=== PATIENT | female | born 1965 | race Caucasian/White ===

== ENCOUNTER 2019-03-30 14:32 | Emergency (ER) | payer OTHER ==
[~2019-03-30] VITALS: Ht 160 cm; Wt 69.0 kg
[2019-03-30] MEDS ORDERED: BRIN1TAB3 PO (14:44)
[2019-03-30] MEDS ORDERED: ONDANSETRON 4MG/2ML VIAL (J2405) IV ONE (15:00)
[2019-03-30] MEDS ORDERED: NS 1,000 ML IV ONE (15:00)
[2019-03-30] MEDS ORDERED: ADACEL/BOOSTRIX VACCINE (DIPHTH/PERTUSS/ACELL/TETANUS)0.5ML SYR (90715) IM ONE (15:00)
[2019-03-30 15:12] LABS: BASO % 0.5 % (0.0-1.0); EOS # 0.1 10^3/uL (0.0-0.50); EOS % 1.1 % (0.0-3.0); HEMATOCRIT 38.7 % (36.0-47.0); HEMOGLOBIN 13.1 g/dl (12.0-15.5); LYMPH # 1.6 10^3/uL (1.5-4.5); LYMPH % 24.6 % (24.0-44.0); MEAN CORPUSCULAR HEMOGLOBIN 30.5 pg (27.0-33.0); MEAN CORPUSCULAR HGB CONC 33.9 g/dl (32.0-36.5); MEAN CORPUSCULAR VOLUME 90.2 fl (80.0-96.0); MONO # 0.7 10^3/uL (0.0-0.8); NEUTROPHILS # 4.2 10^3/uL (1.8-7.7); NEUTROPHILS % 63.5 % (36.0-66.0); PLATELET COUNT, AUTOMATED 236 10^3/uL (150-450); RED BLOOD COUNT 4.29 10^6/uL (4.00-5.40); WHITE BLOOD COUNT 6.6 10^3/uL (4.0-10.0)
[2019-03-30 15:48] LABS: ALBUMIN 3.8 GM/DL (3.2-5.2); ALT/SGPT 31 U/L (12-78); BILIRUBIN,DIRECT 0.1 MG/DL (0.0-0.2); BILIRUBIN,TOTAL 0.4 MG/DL (0.2-1.0); BLOOD UREA NITROGEN 13 MG/DL (7-18); CALCIUM LEVEL 9.4 MG/DL (8.5-10.1); CARBON DIOXIDE LEVEL 30 MEQ/L (21-32); CHLORIDE LEVEL 107 MEQ/L (98-107); CK-MB VALUE MASS 1.1 NG/ML (<3.6); CPK CREATINE PHOSPHOKINASE 73 U/L (26-192); CREATININE FOR GFR 1.03 MG/DL (0.55-1.30); ETHYL ALCOHOL (ETHANOL) < 0.003 % (0.000-0.010); GLOMERULAR FILTRATION RATE 59.2 (>51); GLUCOSE, FASTING 111 MG/DL (70-100); MB/CK RELATIVE INDEX 1.51 (< OR =4); POTASSIUM SERUM 3.9 MEQ/L (3.5-5.1); SODIUM LEVEL 142 MEQ/L (136-145); THYROID STIMULATING HORMONE 0.796 uIU/ML (0.358-3.740); TROPONIN I < 0.02 NG/ML (< 0.10)
--- NOTE | 2019-03-30 15:51 | REP ---
REASON FOR EXAM: Pain. FINDINGS: No acute fracture or destructive osseous lesion. The mortise is intact. Electronically Signed by Olu Doss DO 03/30/2019 05:10 P
--- NOTE | 2019-03-30 15:52 | REP ---
REASON: Pain after trauma. COMPARISON: None. FINDINGS: The joint spaces are symmetric and relatively well maintained. There is no evidence of acute fracture or destructive osseous lesion. IMPRESSION: Negative hand. Electronically Signed by Olu Doss DO 03/30/2019 05:09 P
--- NOTE | 2019-03-30 15:53 | REP ---
REASON: Altered mental status. TECHNIQUE: 4.5 mm contiguous transaxial sections were obtained from the skull base to the cerebral convexities with thin cuts through the posterior fossa without the administration of intravenous contrast. FINDINGS: The ventricles and sulci are consistent with the patient's age. There are no extra-axial fluid collections. There is no mass effect. The deep cerebral white matter is consistent with the patient's age. The orbital and petrous structures , cerebellopontine angles, and posterior fossa are unremarkable. The sella turcica, cavernous, and paracavernous structures are essentially unremarkable. The visualized portions of the paranasal sinuses and mastoid air cells are clear. Images of the skull base show no gross abnormality. IMPRESSION: Essentially unremarkable CT examination of the brain. Electronically Signed by Olu Doss DO 03/30/2019 05:10 P
--- NOTE | 2019-03-30 15:53 | REP ---
REASON: Pain after trauma. FINDINGS: Three views of the shoulder were performed. The acromioclavicular and glenohumeral relationships are within normal limits. There is no acute fracture or destructive osseous lesions. Electronically Signed by Olu Doss DO 03/30/2019 05:10 P
[2019-03-30] MEDS ORDERED: IBUP-1022 PO (16:20)
[2019-03-30 16:24] VITALS: BP 118/73
[2019-03-30 16:32] LABS: AMPHETAMINES LEVEL URINE NEGATIVE (NEGATIVE); BARBITURATES URINE NEGATIVE (NEGATIVE); BENZODIAZEPINES URINE NEGATIVE (NEGATIVE); CANNABINOIDS URINE NEGATIVE (NEGATIVE); COCAINE METABOLITE URINE NEGATIVE (NEGATIVE); METHADONE URINE NEGATIVE (NEGATIVE); OPIATES URINE NEGATIVE (NEGATIVE); PHENCYCLIDINE URINE NEGATIVE (NEGATIVE)
--- NOTE | 2019-03-31 07:17 | ECGEPIP ---
[facility] - ED Test Date: 2019-03-30 Pat Name: JOE MOHR Department: Room: - Gender: Female Stage Producer: ZBIGNIEW : [id number] Requested By: CHESTER MOSELEY Order Number: [id number] Reading MD: Vanessa Steele Measurements Intervals [place] Rate: 80 P: 64 NC: 156 QRS: 56 QRSD: 94 T: 40 QT: 391 QTc: 453 Interpretive Statements SINUS RHYTHM POSSIBLE LEFT ATRIAL ENLARGEMENT No prior Electronically Signed on 03-31-2019 7:16:54 EDT by Vanessa Steele
--- NOTE | 2019-03-31 08:27 | REP ---
CT OF THE CERVICAL SPINE WITHOUT CONTRAST: REASON FOR STUDY: Altered mental status. COMPARISON: None. CT of the cervical spine was performed without contrast in the axial plane. Coronal, sagittal, and axial bone reformats were provided. FINDINGS: There is no acute fracture or subluxation of the cervical spine. There are mild multilevel endplate degenerative changes as evidenced by marginal spurring. The spinal canal is within normal limits. The paraspinal soft tissues are unremarkable. The thyroid is present. There is no apical pneumothorax. The imaged portion of the brain is unremarkable. IMPRESSION: No acute fracture or subluxation of the cervical spine. Electronically Signed by Marcella Nava MD 03/31/2019 11:12 A
== END 2019-03-30 16:40 | disposition home or self-care (01) ==
LOC: EDBD 14:32 → M ED 14:32
DX: S16.1XXA Strain of muscle, fascia and tendon at neck level, initial encounter (principal); T14.8XXA Other injury of unspecified body region, initial encounter; V49.49XA Driver injured in collision with other motor vehicles in traffic accident, initial encounter; Y92.410 Unspecified street and highway as the place of occurrence of the external cause; Z88.0 Allergy status to penicillin
CPT/HCPCS: 36415; 70450; 72125; 73030; 73130; 73610; 80048; 80076; 80307; 81001; 82550; 82553; 84443; 84484; 85025; 90471; 90715; 93005; 93041; 94760; 96361; 96374; 99285; G0480; J2405